=== PATIENT | male | born 1940 | race Caucasian/White ===

== ENCOUNTER → 2021-01-06 | Outpatient (CLI) | payer BC ==
[~2021-01-06] MED LIST: ADULT LOW DOSE81 MG PO; FLOMAX PO; LIPITOR80 MG PO; PACERONE 200 M200 M1 NG; PLAVIX 75 MG TA75 MG PO; SORINE 80 MG TA80 M1 PO; TOPROL XL50 MG PO; ZESTRIL10 MG PO
== END ==
LOC: SJCVCIMAG 09:17
PROVIDERS: ATTEND Surgery Vascular Surgery
DX: I87.2 Venous insufficiency (chronic) (peripheral) (principal); R60.0 Localized edema; M79.89 Other specified soft tissue disorders

== ENCOUNTER → 2021-01-17 | Outpatient (CLI) | payer BC ==
[~2021-01-17] VITALS: Ht 180.3 cm; Wt 79.8 kg
[~2021-01-17] MED LIST changes: +COZAAR 25 MG TA25 M2 PO; +CRESTOR20 MG PO; +FAMOTIDINE 20 M20 MG PO; +LOTRIMIN AF12 GM TOP; +VIAGRA100 MG PO
[2021-01-17 10:50] VITALS: BP 163/73
[2021-01-17 11:16] LABS: HEMATOCRIT 38.5 % (42.0-52.0); HEMOGLOBIN 12.7 gm/dL (14.0-18.0); MCH 32.4 pg (26.0-34.0); MCHC 33.1 g/dL (28.0-37.0); MCV 97.9 fL (80.0-100.0); RBC 3.93 mil/uL (4.50-6.00); RDW 14.1 % (10.5-14.5); WBC 6.1 thou/uL (4.0-11.0)
[2021-01-17 11:23] LABS: CALCIUM 8.9 mg/dL (8.5-10.1); POTASSIUM 4.5 mmol/L (3.5-5.1)
== END | disposition home or self-care (01) ==
LOC: CATH 08:34
PROVIDERS: ATTEND Nuclear Medicine Nuclear Cardiology
DX: I87.1 Compression of vein (principal); I10 Essential (primary) hypertension; I25.2 Old myocardial infarction; I48.91 Unspecified atrial fibrillation; E78.5 Hyperlipidemia, unspecified; K21.9 Gastro-esophageal reflux disease without esophagitis; I25.10 Atherosclerotic heart disease of native coronary artery without angina pectoris; M19.90 Unspecified osteoarthritis, unspecified site; Z98.890 Other specified postprocedural states; Z79.899 Other long term (current) drug therapy; Z79.01 Long term (current) use of anticoagulants; Z79.82 Long term (current) use of aspirin

== ENCOUNTER → 2021-02-07 | Outpatient (CLI) | payer BC ==
[~2021-02-07] VITALS: Ht 180.3 cm; Wt 76.0 kg
[~2021-02-07] MED LIST changes: +B-122500 MC1 PO; +CENTRUM SILVER1 EAC7 PO; +LOSARTAN POTAS100 MG PO
[2021-02-07 12:38] VITALS: BP 166/75
--- NOTE | 2021-02-07 16:29 | NUR ---
PROCEDURE CANCELED DUE TO WRONG LASER EQUIPMENT AVAILABLE IN LAB. PT DROVE HIMSELF HERE AND STATED PRIOR TO PROCEDURE HE HAD SOMEONE COMING TO PICK HIM UP. AFTER PT WAS TOLD BY DR. GEE THAT THEY WERE UNABLE TO DO THE PROCEDURE, PT GOT ANGRY AND REFUSED TO CALL HIS RIDE. PT SIGNED OUT AGAINST MEDICAL ADVICE, SINCE HE TOOK DIAZEPAM 15 MG PO PRIOR TO PROCEDURE. PT WHEELED TO CAR IN PARKING LOT PER RN. AMBULATED WITH STEADY GAIT. PT ADVISED AGAINST THE DANGERS OF DRIVING WITH VALIUM IN SYSTEM. PT INSISTS UPON DRIVING AND STILL REFUSES TO CALL FOR RIDE.
== END | disposition home or self-care (01) ==
LOC: CATH 01-26 08:50
PROVIDERS: ATTEND Nuclear Medicine Nuclear Cardiology
DX: I87.303 Chronic venous hypertension (idiopathic) without complications of bilateral lower extremity (principal); Z53.8 Procedure and treatment not carried out for other reasons; I10 Essential (primary) hypertension; E78.00 Pure hypercholesterolemia, unspecified; I48.91 Unspecified atrial fibrillation; M19.90 Unspecified osteoarthritis, unspecified site; K21.9 Gastro-esophageal reflux disease without esophagitis; I25.10 Atherosclerotic heart disease of native coronary artery without angina pectoris; Z98.890 Other specified postprocedural states; Z79.899 Other long term (current) drug therapy; Z79.01 Long term (current) use of anticoagulants; Z79.82 Long term (current) use of aspirin